=== PATIENT | male | born 1950 | race Caucasian/White ===

== ENCOUNTER 2016-07-05 07:22 | Emergency (ER) | payer OTHER ==
[2016-07-05] MEDS ORDERED: 0.9% Sodium Chloride Inhalation Solution ONE (07:25)
[2016-07-05] MEDS ORDERED: Fluorescein 0.6 mg Ophthalmic Strip ONE (07:25)
--- NOTE | 2016-07-05 07:25 | ED.REPORT ---
HPI-Eye Problem Date of Service Jul 05, 2016 ED Provider: The patient is a 66 year old male who presents to the emergency department by EMS complaining of bilateral eye duarte. The patient was checking a water treatment pipe when it burst and sprayed 50% sodium hydroxide into both eyes. Once he realized what happened he was able to close his eyes. He initially felt pain but this has resolved. He complains of blurred vision and vision loss. He is able to see shapes, objects, and movements. He also has duarte to his right ear and the right side of his neck. Medics irrigated his eyes with about 2.5 L in total. He has not previously injured his eye. He does not wear contact lenses. Nursing Notes Stated Complaint: EYE INJURY Nursing Notes Reviewed: Yes General Time Seen by MD: 07:36 Chief Complaint Both eyes affected, Decreased vision, Visual loss Hx Obtained From: Patient, EMS Arrived By: Ambulance Sudden in Onset?: Yes Onset Occurred: Just prior to arrival Symptom Duration: Since onset Progression Since Onset: Constant Caused by: Exposure, chemical (50 % sodium hydroxide) Context: Occurred at: Workplace Location: : Eye both Quality: Painful Severity: Current: No pain currently Severity: Maximum: Moderate Associated with: Reports: Blurred vision Pertinent Negative: Pt denies other symptoms Relieved by: Irrigation Recent Healthcare: No recent hospitalization Similar Sx Previous: No Past Medical History Past Medical History High cholesterol Family History Noncontributory Smoking History Former Smoker Social History Alcohol Use: 1-3 per day Other Social History: Local resident 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 Physical Exam Initial Vital Signs SEE PAPER CHART Initial VS: Reviewed ENT: Mucous membranes moist, Conjunctiva normal, No scleral icterus Respiratory: No respiratory distress Extremities: Vascular intact, Neuro intact Skin: Warm, Dry, No cyanosis Neurologic: Alert, Oriented, Nonfocal Psychiatric: Mood/affect normal, Behavior normal, Normal thought content Head / Eyes: Normocephalic Bilateral chemosis, opacities over the anterior chamber bilaterally. Pupils are equal. Used the litmus paper which showed a pH of 7-8. General/Constitutional: Awake, Alert, No acute distress, Cooperative Neck: Non-tender, No midline vertebral tend He has a few punctate superficial secondary duarte to the right side of his neck. Procedures PROCEDURE: EYE IRRIGATION NOTES: Initially applied 2 drops tetracaine to each eye. Irrigated with a total of 1L normal saline in each eye using Mirtha lenses. After the first liter was completed we irrigated manually. Additional tetracaine drops were applied as needed. The patient tolerated procedure well. Condition improved. Re-Eval/Medical Decision Med Decision/Clinical Course Patient was identified as a high risk exposure prior to arrival by paramedics who irrigated him with 2.5 L of saline prior to arrival. patient's pH was around 9 on arrival to the ER and was irrigated 2 L of saline to each eye, with improvement of the pH to 8. Multiple rechecks and evaluations of his pH as well as phone conversations with ophthalmology were performed. The patient will be sent directly to ophthalmology. Source of Hx: Old records, EMS Re-Evaluation/Progress #1: Time of Eval: 07:52 Re-Evaluation/Progress Note: Discussed plan for eye irrigation. Re-Evaluation/Progress #2: Time of Eval: 08:11 Re-Evaluation/Progress Note: Rechecked the patient. The pH of his eyes is now at 8-9. Discussed plan for discharge to opthalmologist. Re-Evaluation/Progress #3: Time of Eval: 08:24 Re-Evaluation/Progress Note: Applied additional tetracaine. Discussed plan to irrigate with manual irrigation and not the mirtha lenses. Re-Evaluation/Progress #4: Time of Eval: 08:51 Re-Evaluation/Progress Note: pH is now at 8. Will continue to irrigate until pH is closer to normal. Re-Evaluation/Progress #5: Time of Eval: 09:16 Re-Evaluation/Progress Note: Rechecked the patient. The pH is still at 8. Will apply additional doses of tetracaine. Re-Evaluation/Progress #6: Time of Eval: 09:49 Re-Evaluation/Progress Note: The pH is still at 8. Will continue to irrigate and discuss with the opthalmologist. Re-Evaluation/Progress #7: Time of Eval: 09:57 Re-Evaluation/Progress Note: Discussed plan for discharge to Opthalmology appointment. Consultation #1: Referral / Consult Name: ALEXANDRE VILLAFUERTE MD Consulted With: [employer] Call Returned at: 07:44 Note: Discussed the patients case with Dr. Villafuerte. Only need to irrigate with 1 more liter. He will call back to let us know if he can see him in the office. Consultation #2: Referral / Consult Name: ALEXANDRE VILLAFUERTE MD Consulted With: [employer] Call Returned at: 08:10 Note: He says to not use fluorescein and to check pH. The patient can be seen in their office at 0900. Consultation #3: Referral / Consult Name: ALEXANDRE VILLAFUERTE MD Consulted With: [employer] Call Returned at: 08:20 Note: Spoke with Dr. Villafuerte about the increased in pH. He would like irrigation continued but without the Mirtha lenses. Consultation #4: Referral / Consult Name: ALEXANDRE VILLAFUERTE MD Consulted With: [employer] Call Returned at: 08:30 Note: Once the pH is down they will see him in the office. Consultation #5: Referral / Consult Name: ALEXANDRE VILLAFUERTE MD Consulted With: [employer]ger Requested Call at: 09:50 Call Returned at: 09:54 Note: Discussed that the patient's pH continues to remain at 8 after a total of 9 L (4.5 L per eye) of saline irrigation. He can come to the office now. Counseled Regarding: Diagnosis, Lab results Discharge & Departure Primary Impression: Chemical burn of eye or adnexa Encounter type: initial encounter Laterality: unspecified laterality Qualified Code: T26.90XA - Corrosion of unspecified eye and adnexa, part unspecified, initial encounter Disposition: Home Discharge Condition All VS Reviewed: Yes Condition: Stable Additional Instructions: Go directly to the ophthalmology office. Referrals: ALEXANDRE VILLAFUERTE MD Crit Care Except Billable Proc Time Spent: 75-104 minutes Services Performed: Patient management by me, Time spent at bedside, Reviewing test results, Reviewing imaging, Discussing patient care, Documentation in record, Time with fam/surrogate Critical Care Notes: See MDM Scribe Attestation Portions of this note were transcribed by Lynnette Valerio. I, Dr. Starr personally performed the history, physical exam and medical decision-making; I reviewed and confirmed the accuracy of the information in the transcribed note. Signed by: Patti Wiseman, 07/05/2016 at 1010. copies to: ALEXANDRE VILLAFUERTE MD, Timothy S DO Jul 05, 2016 07:25 Teodoro,Lynnette Jules Jul 05, 2016 07:30
== END 2016-07-05 10:05 | disposition home or self-care (01) ==
LOC: EDUNIT# 07:22 → SED 07:22 → EDBD 07:22 → SED 10:05
DX: T54.3X1A Toxic effect of corrosive alkalis and alkali-like substances, accidental (unintentional), initial encounter (principal); T26.90XA Corrosion of unspecified eye and adnexa, part unspecified, initial encounter; X16.XXXA Contact with hot heating appliances, radiators and pipes, initial encounter; Y93.89 Activity, other specified; Y92.69 Other specified industrial and construction area as the place of occurrence of the external cause; Y99.0 Civilian activity done for income or pay; Z87.891 Personal history of nicotine dependence
CPT/HCPCS: 99291; 99292; G0390

== ENCOUNTER 2016-07-05 11:41 | Emergency (ER) | payer OTHER ==
[~2016-07-05] VITALS: Ht 177.8 cm; Wt 106.8 kg
[2016-07-05 11:41] VITALS: BP 176/89; PULSE 93; RESP 16; O2SAT 97
--- NOTE | 2016-07-05 11:56 | ED.REPORT ---
HPI-Eye Problem Date of Service Jul 05, 2016 ED Provider: Davonte Starr DO The patient was seen here earlier today and was discharged to the director compensation's office after several liters of irrigation. His pH was not improving at the director compensation's office and he was subsequently sent back to the emergency department to be transferred to [facility]. Please see previous note from earlier today for more information. Nursing Notes Stated Complaint: EYE INJURY Chief Complaint: Eye Nursing Notes Reviewed: Yes Allergies: Coded Allergies: Hzdfzzo-Owm-Amx Reductase Inhibitor (Verified Adverse Reaction, Intermediate, "some of them cause body aches", 07/05/16) General Time Seen by MD: 11:45 Chief Complaint Both eyes affected Hx Obtained From: Patient Arrived By: Walk-in Onset Occurred: 5 - 8 hours ago Symptom Duration: Since onset Progression Since Onset: Constant, Gradually worsening Caused by: Exposure, chemical (50% sodium hydroxide) Context: Occurred at: Workplace Location: : Eye both Quality: Painful Severity: Current: Moderate Severity: Maximum: Severe Recent Healthcare: No recent hospitalization, Recent doctor visit Similar Sx Previous: No Risk-Eye Problem Eye Injury Risk Stratification Exposure, chemical RF Statements: Risk factors reviewed Past Medical History Past Medical History High cholesterol Family History Noncontributory Smoking History Former Smoker Social History Alcohol Use: 1-3 per day Other Social History: Good social support, , Local resident 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 Physical Exam Initial Vital Signs Vital Signs (First) Date Time Temp Pulse Resp B/P Pulse Ox O2 Delivery O2 Flow Rate FiO2 07/05/16 11:41 36.7 93 16 176/89 97 Room Air Initial VS: Reviewed ENT: Mucous membranes moist, Conjunctiva normal, No scleral icterus Neck: Supple, Non-tender, Full range of motion Respiratory: No respiratory distress Lymphatic: No lymphadenopathy Extremities: Vascular intact, Neuro intact, No swelling, No tenderness Skin: Warm, Dry, No cyanosis Neurologic: Alert, Oriented, Nonfocal Psychiatric: Mood/affect normal, Behavior normal, Normal thought content Head / Eyes: Normocephalic Bilateral chemosis. Pupils are round and 3 mm bilaterally and sluggishly reactive to light. Total epithelial defect bilaterally. Mild epithelialization nasally on the right. Re-Eval/Medical Decision Med Decision/Clinical Course Essentially, this patient presents back from the ophthalmology office due to concern for more significant and advanced chemical duarte to the eye. Ophthalmology had called in stated that this is beyond their level of care and requested transfer to [facility]. [facility] has anxiously accepted transfer. Patient will have continuous saline irrigation with Immanuel lenses during transport. Source of Hx: Old records, Private physician Re-Evaluation/Progress : Time of Eval: 11:41 Re-Evaluation/Progress Note: Discussed plan for transfer to [facility]. The patient is requesting pain medication. Consultation #1: Call Returned at: 11:53 Note: Spoke with the transfer center at [facility]. Consultation #2: Call Returned at: 12:27 Note: Discussed the patient's case with Dr. Lopez from [facility] who accepts the patient Counseled Regarding: Diagnosis, Lab results, Need for transfer Discharge & Departure Primary Impression: Chemical burn of eye or adnexa Encounter type: subsequent encounter Laterality: unspecified laterality Qualified Code: T26.90XD - Corrosion of unspecified eye and adnexa, part unspecified, subsequent encounter Disposition: Transfer, Acute Care Facility Receiving Hospital: [facility] Transfer Accepted: Yes Transfer Accepted at: 12:28 Transfer Reason: Higher level of care Spoke with: Attending physician (Dr. Lopez) Patient Status: Stable, Stable for transfer Patient Informed: Yes Discharge Condition All VS Reviewed: Yes Condition: Stable Referrals: José Miguel Rios MD (PCP) Scribe Attestation Portions of this note were transcribed by Lynnette Valerio. I, Dr. Starr personally performed the history, physical exam and medical decision-making; I reviewed and confirmed the accuracy of the information in the transcribed note. Signed by: Patti Wiseman, 07/05/2016 at 1235. copies to: José Miguel Rios MD, Timothy Antonietta RIVERA Jul 05, 2016 11:56 Lynnette Valerio Jul 05, 2016 12:09
[2016-07-05] MEDS ORDERED: HYDROcodone-APAP 5-325 mg Tablet PO ONE (12:05)
[2016-07-05] MEDS ORDERED: SODIUM CHLORIDE ONE (12:05)
[2016-07-05 12:51] VITALS: BP 157/82
[2016-07-05 13:04] VITALS: BP 157/82
== END 2016-07-05 13:01 | disposition short-term general hospital (02) ==
LOC: SED 11:41
DX: T26 Burn and corrosion confined to eye and adnexa (principal); X58.XXXD Exposure to other specified factors, subsequent encounter; Y93.89 Activity, other specified; Y92.69 Other specified industrial and construction area as the place of occurrence of the external cause; Y99.0 Civilian activity done for income or pay; Z87.891 Personal history of nicotine dependence; Z88.8 Allergy status to other drugs, medicaments and biological substances
CPT/HCPCS: 99285; J7030